=== PATIENT | female | born 1985 | race Caucasian/White ===

== ENCOUNTER 2016-12-30 14:37 | Outpatient (CLI) | payer OTHER ==
--- NOTE | 2016-12-30 16:56 | MMO ---
BILATERAL DIGITAL SCREENING MAMMOGRAMS: Date: 12/30/16 HISTORY: 31-year-old female presents for digital screening mammogram. Patient gives a history of maternal jose carlos ast cancer at an early age. This is a baseline study. No prior mammograms. FINDINGS: This patient's mammogram was interpreted with the assistance of computer-aided detection. The breasts are heterogeneously dense, which can obscure small masses. There are typically benign calcifications bilaterally, somewhat more prominent on the left side, inc luding the subareolar region. No evidence for malignancy. IMPRESSION: BIRADS 2: Benign Finding(s) Follow-up screening mammograms as appropriate for patient's risk factors. Given history of maternal breast cancer at an early age, consideration for BRCA screening is suggest ed. POS: JEANETTE
== END 2016-12-30 14:38 | disposition home or self-care (01) ==
LOC: SCSMAMMO 14:37
PROVIDERS: ATTEND Family Medicine
DX: Z12.31 Encounter for screening mammogram for malignant neoplasm of breast (principal)
CPT/HCPCS: 77067; G0202